=== PATIENT | male | born 1935 | race Caucasian/White ===

== ENCOUNTER → 2016-12-23 | Outpatient (CLI) | payer OTHER, BC ==
[2016-12-23 08:11] LABS: BASOPHILS # (AUTO) 0.1 X10^3/uL (0.0-0.1); BASOPHILS % (AUTO) 1.2 % (0.2-1.0); EOSINOPHILS # (AUTO) 0.2 x10^3/uL (0.0-0.2); EOSINOPHILS % (AUTO) 2.9 % (0.9-2.9); HEMATOCRIT 34.1 % (42.0-54.0); HEMOGLOBIN 11.1 g/dL (13.5-18.0); LYMPHOCYTES # (AUTO) 0.4 X10^3/uL (1.3-2.9); LYMPHOCYTES % (AUTO) 6.3 % (21.0-51.0); MEAN CORPUSCULAR HEMOGLOBIN 29.7 pg (27.0-34.0); MEAN CORPUSCULAR HGB CONC 32.6 g/dL (33.0-35.0); MEAN PLATELET VOLUME 8.1 fL (7.4-11.0); MONOCYTES # (AUTO) 0.6 x10^3/uL (0.3-0.8); MONOCYTES % (AUTO) 8.7 % (0.0-13.0); NEUTROPHILS # (AUTO) 5.4 x10^3/uL (2.2-4.8); NEUTROPHILS % (AUTO) 80.9 % (42.0-75.0); PLATELET COUNT 167 X10^3/uL (150.0-450.0); RED BLOOD COUNT 3.75 X10^6/uL (4.7-6.0); RED CELL DISTRIBUTION WIDTH 14.9 % (11.6-16.5); WHITE BLOOD COUNT 6.7 X10^3/uL (3.6-10.0)
[2016-12-23 08:29] LABS: ALBUMIN 3.6 g/dL (3.4-5.0); BLOOD UREA NITROGEN 23 mg/dL (7-18); CALCIUM 8.9 mg/dL (8.5-10.1); CARBON DIOXIDE 25.4 mmol/L (21-32); CHLORIDE 109 mmol/L (98-107); CHOL/HDL RATIO 2.5 (0.0-5.0); CHOLESTEROL 103 mg/dL (0-200); CREATININE 1.59 mg/dL (0.70-1.30); GLUCOSE 98 mg/dL (65-99); HDL CHOLESTEROL 41 mg/dL (40-60); PHOSPHORUS 3.1 mg/dL (2.6-4.7); SODIUM 143 mmol/L (136-145); TRIGLYCERIDES 31 mg/dL (0-150); URIC ACID 6.2 mg/dL (3.5-7.2); eGFR BLACK RACES 54 (>60); eGFR NON BLACK RACES 45 (>60)
== END ==
LOC: LAB 07:43
PROVIDERS: ATTEND Internal Medicine
DX: I12.9 Hypertensive chronic kidney disease with stage 1 through stage 4 chronic kidney disease, or unspecified chronic kidney disease (principal); N18.3 Chronic kidney disease, stage 3 (moderate)
CPT/HCPCS: 36415; 80061; 80069; 84550; 85025

== ENCOUNTER 2017-03-17 10:00 | Inpatient (IN) | payer OTHER, BC ==
[2017-03-17 10:05] VITALS: BMI 24.3
--- NOTE | 2017-03-17 10:47 | DR.GENAD ---
HPI - PCP Primary Care Physician: brett elderlas - Complaint/Symptoms Chief Complaint Doctors Comments: Patient states he had labs requested by Dr. Mantilla a urologist in [place] and they called him to tell him to come to the emergency room because his potassium was elevated. He denies chest pain or SOB. States he is to go to [place] next week for and ICD implant because his heart is weak and he has irregular heart beat. States he is taking HCTZ and has been eating bannas but is not on any supplimentary potassium. Chief Complaint:: patient had out patient lab work and was told to come to the er because his potassium was high. going to [facility] next week for a defeberlator - Nurses notes reviewed Nurses Notes Review: Yes - Source History Provided: Patient - Mode of Arrival Mode of Arrival: Ambulatory - Timing Onset of Chief Complaint: 03/17/17 Came on: Gradually - Duration Duration: Constant How lon Duration: Days - Location Location: hyperkalemia - Severity Severity: Moderate - Modifying Factors Worsens:: nothing Improves:: nothing PMH - PMH Past Medical History: Yes Past Medical History: Dyslipidemia, Hypertension Past Surgical History: Yes Surgical History: Angioplasty/Stents, Ortho Surgery Past Surgical History Comment: hernia - Family History History of Family Medical Conditions: No - Social History Does patient currently use any type of tobacco product: No Have you used tobacco products in the last 12 months: No Does any household member use tobacco: Yes Alcohol Use: None Do you use any recreational Drugs:: No Lives With: Family Lives Where: Home - infectious screening In the last 2 months have you had wt loss of >10#?: NO Have you had fever, night sweats or hemotysis?: No Have you traveled outside the country in the last 6 months?: No Isolation: Standard ROS - Review of Systems Constitutional: No Symptoms Reported. negative: See HPI, Chills, Diaphoresis, Fever, Malaise, Weakness, Irritable, Fatigue, Loss of Appetite, Other Eyes: No Symptoms Reported. negative: See HPI, Eye Pain, Blurred Vision, Tearing, Discharge, Photophobia, Diplopia, Other ENTM: No Symptoms Reported Respiratoy: No Symptoms Reported Cardiovascular: No Symptoms Reported, Edema, Palpitations. negative: See HPI, Chest Pain, Syncope, Cyanosis, Skin Mottling, Other Gastrointestinal/Abdominal: No Symptoms Reported. negative: See HPI, Abdominal Pain, Constipation, Diarrhea, Nausea, Vomiting, Food Intolerance, Other Genitourinary: No Symptoms Reported Neurological: No Symptoms Reported Musculoskeletal: No Symptoms Reported Integumentary: No Symptoms Reported Hematologic/Lymphatic: No Symptoms Reported Endocrine: No Symptoms Reported Psychiatric: No Symptoms Reported PE - Vital Signs Vitals: Temperature 98.3 F Pulse Rate [Right Brachial] 107 Pulse Rate 110 Respiratory Rate 16 Blood Pressure [Right Arm] 136/78 Blood Pressure 120/75 O2 Sat by Pulse Oximetry 99 - General Limitations: No Limitations General Appearance: Alert, In No Apparent Distress - Head Head Exam: Normal Inspection, Atraumatic, Normocephalic - Eyes Eye exam: Normal Appearance, PERRL, EOMI. negative: Scleral Icterus, Conjunctival Injection, Nystagmus, Miosis, Mydrasis, Periorbital Swelling, Periorbital Tenderness, Other - ENT ENT Exam: Normal Exam, Normal Oropharynx, Normal External Ear Exam, Mucous Membranes Moist, TM's Normal Bilaterally External Ear Exam: Normal External Inspection TM/Canal Exam: Bilateral Normal Nose Exam: Normal Nose Exam Mouth Exam: Normal Inspection Throat Exam: Normal Inspection - Neck Neck Exam: Normal Inspection, Full ROM, Trachea Midline - Chest Chest Inspection: Normal Inspection, Symmetric Chest Wall Rise - Respiratory Respiratory Exam: Normal Lung Sounds Bilat Respiratory Exam: Bilateral Clear to Auscultation - Cardiovascular Cardiovascular Exam: Regular Rate, Normal Rhythm, Tachycardia, Normal Heart Sounds - Abdominal Exam Abdominal Exam: Normal Inspection, Normal Bowel Sounds, Soft. negative: Distention, Tenderness, Guarding, Rebound, Rigidity, Dimnished Bowel Sounds, Hyperactive Bowel Sounds, Hypoactive Bowel Sounds, Organomegaly, Trauma, Incision, Ascites, Mass, Bruit, Pulsatile Mass, Hernia, Other Abdominal Tenderness: negative: RUQ, RLQ, LUQ, LLQ, Epigastrium, Suprapubic, Diffuse, Mild, Moderate, Severe, Other - Extremities Extremities Exam: Normal Inspection, Full ROM, Normal Capillary Refill. negative: Tenderness, Edema, Joint Swelling, Calf Tenderness, Other - Back Back Exam: Normal Inspection, Full ROM. negative: Tenderness, (R) CVA Tenderness, (L) CVA Tenderness, Muscle Spasm, Paraspinal Tenderness, Vertebral Tenderness, Rashes, (R) Sciatic Notch Tenderness, (L) Sciatic Notch Tendern, (R ) Straight Leg Raise, (L) Straight Leg Raise, Other - Neurologic Neurological Exam: Alert, Oriented X3, CN II-XII Intact, Normal Gait, Reflexes Normal - Psychiatric Psychiatric Exam: Normal Affect, Normal Mood. negative: Depressed, Agitated, Anxious, Flat Affect, Manic, Homicidal Ideation, Suicidal Ideation, Other - Skin Skin Exam: Warm, Dry, Intact, Normal Color. negative: Rash, Cyanosis, Diaphoresis, Erythema, Pallor, Mottled, Other Course - Reevaluation 1st: Improved - Consultation Called: 13:41 Call Returned: 13:42 (DR. Tam to admit) - Education/Counseling Education/Counseling: Patient, Family Educated On: Treatment, Diagnosis, Prognosis, Needs for Follow Up ROR - Labs Reviewed Laboratory Results Reviewed?: Yes (All labs and x-ray results reviewed and discussed with patient) Result Diagrams: 03/17/17 10:51 03/17/17 10:51 Laboratory: WBC 5.9 X10^3/uL (3.6-10.0) 03/17/17 10:51 RBC 3.37 X10^6/uL (4.7-6.0) L 03/17/17 10:51 Hgb 10.0 g/dL (13.5-18.0) L 03/17/17 10:51 Hct 30.2 % (42.0-54.0) L 03/17/17 10:51 MCV 89.6 fL (80.0-100.0) 03/17/17 10:51 MCH 29.6 pg (27.0-34.0) 03/17/17 10:51 MCHC 33.1 g/dL (33.0-35.0) 03/17/17 10:51 RDW 15.5 % (11.6-16.5) 03/17/17 10:51 Plt Count 212 X10^3/uL (150.0-450.0) 03/17/17 10:51 MPV 8.3 fL (7.4-11.0) 03/17/17 10:51 Neut % 77.1 % (42.0-75.0) H 03/17/17 10:51 Lymph % 11.9 % (21.0-51.0) L 03/17/17 10:51 [place] % 7.5 % (0.0-13.0) 03/17/17 10:51 Eos % 3.0 % (0.9-2.9) H 03/17/17 10:51 Baso % 0.5 % (0.2-1.0) 03/17/17 10:51 Neut # 4.5 x10^3/uL (2.2-4.8) 03/17/17 10:51 Lymph # 0.7 X10^3/uL (1.3-2.9) L 03/17/17 10:51 [place] # 0.4 x10^3/uL (0.3-0.8) 03/17/17 10:51 Eos # 0.2 x10^3/uL (0.0-0.2) 03/17/17 10:51 Baso # 0.0 X10^3/uL (0.0-0.1) 03/17/17 10:51 Absolute Nucleated RBC 0.0 /100WBC 03/17/17 10:51 INR Target Range - 03/17/17 10:51 INR 1.34 (0.8-1.3) H 03/17/17 10:51 PTT 46.4 SECONDS (22.9-36.5) H 03/17/17 10:51 PTT Comment - 03/17/17 10:51 Sodium 137 mmol/L (136-145) 03/17/17 10:51 Corrected Sodium TNP 03/17/17 10:51 Potassium 6.8 mmol/L (3.5-5.1) H* 03/17/17 10:51 Chloride 108 mmol/L (98-107) H 03/17/17 10:51 Carbon Dioxide 22.9 mmol/L (21-32) 03/17/17 10:51 BUN 35 mg/dL (7-18) H 03/17/17 10:51 Creatinine 2.58 mg/dL (0.70-1.30) H 03/17/17 10:51 Est GFR (MDRD) Af Amer 31 (>60) L 03/17/17 10:51 Est GFR (MDRD) Non-Af 26 (>60) L 03/17/17 10:51 Glucose 101 mg/dL (65-99) H 03/17/17 10:51 Calcium 9.3 mg/dL (8.5-10.1) 03/17/17 10:51 Corrected Calcium 9.9 mg/dL (8.5-10.1) 03/17/17 10:51 Magnesium 2.3 mg/dL (1.7-2.9) 03/17/17 10:51 Total Bilirubin 0.40 mg/dL (0.2-1.0) 03/17/17 10:51 AST 20 Units/L (15-37) 03/17/17 10:51 ALT 20 Units/L (12-78) 03/17/17 10:51 Alkaline Phosphatase 66 Units/L (46-116) 03/17/17 10:51 Creatine Kinase 49 Units/L (39-308) 03/17/17 10:51 CK-MB (CK-2) 18.0 ng/mL (0-4.0) H* 03/17/17 10:51 CK/CKMB % Calc 36.7 % (<4) 03/17/17 10:51 Troponin I 0.03 ng/mL (0-1.5) 03/17/17 10:51 Total Protein 7.2 g/dL (6.4-8.2) 03/17/17 10:51 Albumin 3.3 g/dL (3.4-5.0) L 03/17/17 10:51 Globulin 3.9 g/dL (2.5-4.5) 03/17/17 10:51 Albumin/Globulin Ratio 0.8 Ratio (1.1-2.1) L 03/17/17 10:51 - XRAY XRAY Interpreted by: Radiologist (CXR: Cardiomegaly without acut cardiopulmonary disease or CHF) - Diagnosis Discharge Problem: Hyperkalemia, Atrial flutter, paroxysmal, Cardiomegaly, Tachycardia Chronic kidney disease Qualifiers: Chronic kidney disease stage: stage 3 (moderate) Qualified Code(s): N18.3 - Chronic kidney disease, stage 3 (moderate) - Discharge Plan Disposition: ADMITTED INPATIENT Condition: Stable - Follow ups/Referrals Follow ups/Referrals: RIKKI MANTILLA [Primary Care Provider] - 3 days - Instructions
[2017-03-17] MEDS ORDERED: KAYEXALATE PO ONE (10:48)
[2017-03-17] MEDS ORDERED: NS 1000 ML 1,000 ML IV ONE (10:51)
[2017-03-17] MEDS ORDERED: NS 1000 ML 1,000 ML IV SCH (11:00)
[2017-03-17 11:01] LABS: BASOPHILS % (AUTO) 0.5 % (0.2-1.0); EOSINOPHILS # (AUTO) 0.2 x10^3/uL (0.0-0.2); HEMATOCRIT 30.2 % (42.0-54.0); LYMPHOCYTES # (AUTO) 0.7 X10^3/uL (1.3-2.9); LYMPHOCYTES % (AUTO) 11.9 % (21.0-51.0); MEAN CORPUSCULAR HEMOGLOBIN 29.6 pg (27.0-34.0); MEAN CORPUSCULAR HGB CONC 33.1 g/dL (33.0-35.0); MEAN CORPUSCULAR VOLUME 89.6 fL (80.0-100.0); MEAN PLATELET VOLUME 8.3 fL (7.4-11.0); MONOCYTES # (AUTO) 0.4 x10^3/uL (0.3-0.8); MONOCYTES % (AUTO) 7.5 % (0.0-13.0); NEUTROPHILS # (AUTO) 4.5 x10^3/uL (2.2-4.8); NEUTROPHILS % (AUTO) 77.1 % (42.0-75.0); PLATELET COUNT 212 X10^3/uL (150.0-450.0); RED BLOOD COUNT 3.37 X10^6/uL (4.7-6.0); RED CELL DISTRIBUTION WIDTH 15.5 % (11.6-16.5); WHITE BLOOD COUNT 5.9 X10^3/uL (3.6-10.0)
[2017-03-17 11:41] LABS: ALANINE AMINOTRANSFERASE 20 Units/L (12-78); ALBUMIN 3.3 g/dL (3.4-5.0); ALKALINE PHOSPHATASE 66 Units/L (46-116); ASPARTATE AMINO TRANSFERASE 20 Units/L (15-37); BLOOD UREA NITROGEN 35 mg/dL (7-18); CALCIUM 9.3 mg/dL (8.5-10.1); CARBON DIOXIDE 22.9 mmol/L (21-32); CHLORIDE 108 mmol/L (98-107); CKMB % 36.7 % (<4); COR CA(FOR HYPOALB) 9.9 mg/dL (8.5-10.1); CREATINE KINASE 49 Units/L (39-308); CREATININE 2.58 mg/dL (0.70-1.30); GLUCOSE 101 mg/dL (65-99); MAGNESIUM 2.3 mg/dL (1.7-2.9); SODIUM 137 mmol/L (136-145); TOTAL PROTEIN 7.2 g/dL (6.4-8.2); TROPONIN I 0.03 ng/mL (0-1.5); eGFR BLACK RACES 31 (>60); eGFR NON BLACK RACES 26 (>60)
--- NOTE | 2017-03-17 12:35 | RAD ---
HISTORY: Chest pain and hypokalemia. Study: Single-view chest. Comparison: None. Findings: The trachea is midline. The cardiac silhouette is enlarged with a tortuous thoracic aorta status po st median sternotomy and CABG without radiographic evidence for CHF. The lungs are clear without fo ryan infiltrate or effusion. The bony thorax is unremarkable. IMPRESSION: Cardiomegaly without acute cardiopulmonary disease or CHF. Reported By:
[2017-03-17] MEDS ORDERED: CARDIZEM INJ 50 MG VIAL IVP ONE (12:50)
[2017-03-17] MEDS ORDERED: CARDIZEM INJ 125 MG VIAL 125 MG in NS 100 ML IV 100 ML IV PRN (12:50)
[2017-03-17] MEDS ORDERED: D50W ABBOJECT SYR IV ONE (12:53)
[2017-03-17] MEDS ORDERED: HumuLIN R IV STA (12:55)
[2017-03-17] MEDS ORDERED: CARDIZEM INJ 50 MG VIAL ONE (12:57)
[2017-03-17] MEDS ORDERED: D50W ABBOJECT SYR ONE (12:59)
[2017-03-17] MEDS ORDERED: HumuLIN R ONE (13:00)
[2017-03-17 15:04] LABS: CKMB % 37.3 % (<4); TROPONIN I 0.04 ng/mL (0-1.5)
[2017-03-17 15:22] LABS: CREATINE KINASE MB 17.9 ng/mL (0-4.0)
[2017-03-17] MEDS: PROTONIX INJ 40 MG VIAL IVP SCH (18:16)
[2017-03-17] MEDS: NS 1000 ML 1,000 ML IV SCH (18:16)
[2017-03-17] MEDS: ELIQUIS PO SCH (18:17)
[2017-03-17 20:36] LABS: CKMB % 35.2 % (<4); TROPONIN I 0.04 ng/mL (0-1.5)
[2017-03-17 20:46] LABS: CREATINE KINASE MB 16.2 ng/mL (0-4.0)
[2017-03-17] MEDS: ZOCOR TAB 40 MG PO SCH (20:55)
[2017-03-17] MEDS: COREG TAB 3.125 MG PO SCH ×2 (20:55→20:59)
[2017-03-17] MEDS: SNACK - Diabetic Appropriate PO SCH (20:56)
[2017-03-18 02:16] LABS: BASOPHILS % (AUTO) 0.9 % (0.2-1.0); EOSINOPHILS # (AUTO) 0.1 x10^3/uL (0.0-0.2); EOSINOPHILS % (AUTO) 2.4 % (0.9-2.9); HEMATOCRIT 27.3 % (42.0-54.0); HEMOGLOBIN 9.1 g/dL (13.5-18.0); LYMPHOCYTES # (AUTO) 0.7 X10^3/uL (1.3-2.9); LYMPHOCYTES % (AUTO) 14.5 % (21.0-51.0); MEAN CORPUSCULAR HEMOGLOBIN 29.9 pg (27.0-34.0); MEAN CORPUSCULAR HGB CONC 33.3 g/dL (33.0-35.0); MEAN CORPUSCULAR VOLUME 89.8 fL (80.0-100.0); MEAN PLATELET VOLUME 8.3 fL (7.4-11.0); MONOCYTES # (AUTO) 0.5 x10^3/uL (0.3-0.8); MONOCYTES % (AUTO) 9.5 % (0.0-13.0); NEUTROPHILS # (AUTO) 3.6 x10^3/uL (2.2-4.8); NEUTROPHILS % (AUTO) 72.7 % (42.0-75.0); PLATELET COUNT 149 X10^3/uL (150.0-450.0); RED BLOOD COUNT 3.04 X10^6/uL (4.7-6.0); RED CELL DISTRIBUTION WIDTH 15.9 % (11.6-16.5); WHITE BLOOD COUNT 4.9 X10^3/uL (3.6-10.0)
[2017-03-18 02:26] LABS: ALANINE AMINOTRANSFERASE 17 Units/L (12-78); ALBUMIN 2.7 g/dL (3.4-5.0); ALKALINE PHOSPHATASE 56 Units/L (46-116); ASPARTATE AMINO TRANSFERASE 16 Units/L (15-37); BLOOD UREA NITROGEN 32 mg/dL (7-18); CALCIUM 8.2 mg/dL (8.5-10.1); CARBON DIOXIDE 22.2 mmol/L (21-32); CHLORIDE 111 mmol/L (98-107); CHOL/HDL RATIO 2.4 (0.0-5.0); CHOLESTEROL 79 mg/dL (0-200); COR CA(FOR HYPOALB) 9.2 mg/dL (8.5-10.1); CREATININE 2.54 mg/dL (0.70-1.30); GLUCOSE 107 mg/dL (65-99); HDL CHOLESTEROL 33 mg/dL (40-60); SODIUM 139 mmol/L (136-145); TOTAL PROTEIN 6.1 g/dL (6.4-8.2); TRIGLYCERIDES 18 mg/dL (0-150); eGFR BLACK RACES 32 (>60); eGFR NON BLACK RACES 26 (>60)
[2017-03-18 02:53] LABS: CKMB % 31.4 % (<4); TROPONIN I 0.21 ng/mL (0-1.5)
[2017-03-18 02:59] LABS: CREATINE KINASE MB 13.2 ng/mL (0-4.0)
[2017-03-18] MEDS: NS 1000 ML 1,000 ML IV SCH ×2 (03:00→17:16)
[2017-03-18 08:46] LABS: CKMB % 29.6 % (<4); TROPONIN I 0.36 ng/mL (0-1.5)
[2017-03-18] MEDS: FLOMAX PO SCH (08:55)
[2017-03-18] MEDS: ELIQUIS PO SCH ×2 (08:55→20:54)
[2017-03-18 08:56] LABS: CREATINE KINASE MB 14.5 ng/mL (0-4.0)
[2017-03-18] MEDS: LASIX PO SCH (08:56)
[2017-03-18] MEDS: COREG TAB 3.125 MG PO SCH (08:56)
[2017-03-18] MEDS: PROTONIX INJ 40 MG VIAL IVP SCH (08:56)
[2017-03-18] MEDS ORDERED: COREG TAB 3.125 MG PO SCH (11:58)
[2017-03-18] MEDS ORDERED: COREG TAB 3.125 MG PO ONE (13:00)
[2017-03-18] MEDS: SNACK - Diabetic Appropriate PO SCH (20:40)
[2017-03-18] MEDS: ZOCOR TAB 40 MG PO SCH (20:54)
[2017-03-18] MEDS: COREG TAB 12.5 MG PO SCH (20:54)
[2017-03-19] MEDS: NS 1000 ML 1,000 ML IV SCH (06:22)
[2017-03-19] MEDS: PROTONIX INJ 40 MG VIAL IVP SCH (08:15)
[2017-03-19] MEDS: ELIQUIS PO SCH (08:16)
[2017-03-19] MEDS: FLOMAX PO SCH (08:16)
[2017-03-19] MEDS: COREG TAB 12.5 MG PO SCH (08:16)
[2017-03-19] MEDS: LASIX PO SCH (08:16)
[2017-03-19 13:02] VITALS: BP 112/75
== END 2017-03-19 13:45 | disposition home or self-care (01) | DRG 310 ==
LOC: ER 10:07 → ICU 13:43
PROVIDERS: ADMIT Obstetrics & Gynecology Obstetrics; ATTEND Obstetrics & Gynecology Obstetrics
DX: I48.91 Unspecified atrial fibrillation (principal); E87.5 Hyperkalemia; I51.7 Cardiomegaly; R00.0 Tachycardia, unspecified; N18.3 Chronic kidney disease, stage 3 (moderate); N28.89 Other specified disorders of kidney and ureter; I12.9 Hypertensive chronic kidney disease with stage 1 through stage 4 chronic kidney disease, or unspecified chronic kidney disease
CPT/HCPCS: 36415; 71010; 80053; 80061; 80069; 82550; 82553; 83735; 84484; 84550; 85025; 85610; 85730; 93005; 93010; 96365; 96367; 96374; 96375; 99284; 99285; A4216; A4222; C9113; J1815; J3490

== ENCOUNTER → 2017-03-17 | Outpatient (CLI) | payer OTHER, BC ==
[2017-03-17 08:45] LABS: ALBUMIN 3.4 g/dL (3.4-5.0); BLOOD UREA NITROGEN 35 mg/dL (7-18); CALCIUM 9.2 mg/dL (8.5-10.1); CHLORIDE 108 mmol/L (98-107); CREATININE 2.69 mg/dL (0.70-1.30); GLUCOSE 102 mg/dL (65-99); PHOSPHORUS 3.3 mg/dL (2.6-4.7); SODIUM 139 mmol/L (136-145); eGFR BLACK RACES 30 (>60); eGFR NON BLACK RACES 24 (>60)
[2017-03-17 08:46] LABS: BASOPHILS % (AUTO) 0.5 % (0.2-1.0); EOSINOPHILS # (AUTO) 0.2 x10^3/uL (0.0-0.2); EOSINOPHILS % (AUTO) 3.1 % (0.9-2.9); HEMATOCRIT 32.3 % (42.0-54.0); HEMOGLOBIN 10.6 g/dL (13.5-18.0); LYMPHOCYTES # (AUTO) 0.7 X10^3/uL (1.3-2.9); MEAN CORPUSCULAR HEMOGLOBIN 29.6 pg (27.0-34.0); MEAN CORPUSCULAR HGB CONC 32.9 g/dL (33.0-35.0); MEAN CORPUSCULAR VOLUME 89.9 fL (80.0-100.0); MEAN PLATELET VOLUME 8.4 fL (7.4-11.0); MONOCYTES # (AUTO) 0.5 x10^3/uL (0.3-0.8); MONOCYTES % (AUTO) 7.8 % (0.0-13.0); NEUTROPHILS # (AUTO) 4.8 x10^3/uL (2.2-4.8); NEUTROPHILS % (AUTO) 77.6 % (42.0-75.0); PLATELET COUNT 221 X10^3/uL (150.0-450.0); RED BLOOD COUNT 3.59 X10^6/uL (4.7-6.0); RED CELL DISTRIBUTION WIDTH 15.9 % (11.6-16.5); WHITE BLOOD COUNT 6.2 X10^3/uL (3.6-10.0)
== END ==
LOC: LAB 08:12
PROVIDERS: ATTEND Internal Medicine
DX: N28.89 Other specified disorders of kidney and ureter (principal); I12.9 Hypertensive chronic kidney disease with stage 1 through stage 4 chronic kidney disease, or unspecified chronic kidney disease; N18.3 Chronic kidney disease, stage 3 (moderate)
CPT/HCPCS: 36415; 80069; 84550; 85025

== ENCOUNTER 2017-05-03 21:00 | Emergency (ER) | payer OTHER, BC ==
[2017-05-03 21:08] VITALS: BMI 23.0
--- NOTE | 2017-05-03 23:10 | DR.GENAD ---
HPI - PCP Primary Care Physician: ANNALEE - Complaint/Symptoms Chief Complaint Doctors Comments: "I can't pee after my catheter came out." Chief Complaint:: PRESSLEY CATH CAME OUT X 1 HR AGO, Self Treatment fo Chief Complaint: NONE - Nurses notes reviewed Nurses Notes Review: Yes - Source History Provided: Patient, Family Member - Mode of Arrival Mode of Arrival: Wheelchair - Timing Onset of Chief Complaint: 05/03/17 Came on: Suddenly - Duration Duration: Since Onset How lon Duration: Hours - Severity Severity: Moderate PMH - PMH Past Medical History: Yes Past Medical History: Dyslipidemia, Hypertension Past Surgical History: Yes Surgical History: Angioplasty/Stents, Ortho Surgery - Family History History of Family Medical Conditions: No - Social History Does patient currently use any type of tobacco product: No Have you used tobacco products in the last 12 months: No Type of Tobacco Use: None Does any household member use tobacco: Yes Alcohol Use: None Do you use any recreational Drugs:: No Lives With: Family Lives Where: Home - infectious screening In the last 2 months have you had wt loss of >10#?: NO Have you had fever, night sweats or hemotysis?: No Have you traveled outside the country in the last 6 months?: No Isolation: Standard ROS - Review of Systems Constitutional: No Symptoms Reported Eyes: No Symptoms Reported Respiratoy: No Symptoms Reported Cardiovascular: No Symptoms Reported Gastrointestinal/Abdominal: No Symptoms Reported Genitourinary: Pain, Other (acute urinary retention) Neurological: No Symptoms Reported Musculoskeletal: No Symptoms Reported Integumentary: No Symptoms Reported Hematologic/Lymphatic: No Symptoms Reported Endocrine: No Symptoms Reported Psychiatric: No Symptoms Reported All Other Systems: Reviewed and Negative PE - Vital Signs Vitals: Temperature 98.2 F Pulse Rate 75 Respiratory Rate 16 Blood Pressure [Left Arm] 112/75 Blood Pressure [Right Arm] 115/72 Blood Pressure 115/49 O2 Sat by Pulse Oximetry 97 - General Limitations: No Limitations General Appearance: Alert, In No Apparent Distress - Head Head Exam: Normal Inspection - Neck Neck Exam: Normal Inspection, Trachea Midline - Chest Chest Inspection: Normal Inspection, Symmetric Chest Wall Rise - Respiratory Respiratory Exam: Normal Lung Sounds Bilat Respiratory Exam: Bilateral Clear to Auscultation - Cardiovascular Cardiovascular Exam: Regular Rate, Irregular Rhythm, Normal Heart Sounds - Abdominal Exam Abdominal Exam: Normal Inspection, Normal Bowel Sounds, Soft - Extremities Extremities Exam: Edema - Neurologic Neurological Exam: Alert, Oriented X3, CN II-XII Intact - Psychiatric Psychiatric Exam: Normal Affect, Normal Mood - Skin Skin Exam: Warm, Dry - Diagnosis Discharge Problem: Acute urinary retention - Discharge Plan Disposition: 01 HOME, SELF-CARE Condition: Stable - Follow ups/Referrals Follow ups/Referrals: RIKKI MANTILLA [Primary Care Provider] - 3 days - Instructions
[2017-05-03 23:16] LABS: BILIRUBIN,URINE NEGATIVE (NEGATIVE); BLOOD/HEMOGLOBIN,URINE 5+ (NEGATIVE); GLUCOSE, URINE NEGATIVE (NEGATIVE); KETONES,URINE NEGATIVE (NEGATIVE); LEUKOCYTE ESTERASE ,URINE 1+ (NEGATIVE); NITRITES,URINE NEGATIVE (NEGATIVE); PROTEIN,URINE 2+ (NEGATIVE); UROBILINOGEN,URINE NORMAL (NORMAL)
[2017-05-03 23:26] LABS: APPEARANCE,URINE CLEAR (CLEAR); BACTERIA,URINE NEGATIVE /HPF (NEGATIVE); COLOR,URINE YELLOW (YELLOW); RBC,URINE 15-20 /HPF (NEGATIVE); SQUAMOUS EPITHELIAL CELL,UR RARE /HPF (NEGATIVE)
[2017-05-04 00:28] VITALS: BP 118/82
== END 2017-05-04 00:26 | disposition home or self-care (01) ==
LOC: ER 21:12
PROC: 0T9B70Z Drainage of Bladder with Drainage Device, Via Natural or Artificial Opening (ICD-10-PCS; principal; 2017-05-03)
DX: R33.8 Other retention of urine (principal)
CPT/HCPCS: 51702; 81001; 99282

== ENCOUNTER 2017-06-03 15:41 | Emergency (ER) | payer OTHER, BC ==
[2017-06-03 15:46] VITALS: BMI 23.3
[2017-06-03 15:47] VITALS: BP 103/46
--- NOTE | 2017-06-03 16:19 | DR.GENAD ---
HPI - PCP Primary Care Physician: ANNALEE - Complaint/Symptoms Chief Complaint Doctors Comments: Patient has been hospitalized for two months for renal failure. His catheter was discontinued on three days ago and he has not urinated since. His manager wellness is Dr Willams. Patient is also contipated. Chief Complaint:: PATIENT [place] [facility] [place] AND HAS BEEN ON DIALYSIS AND WAS D/C LAST WEEK FROM THE HOSPITAL AND HASNT URINATED SINCE. - Source History Provided: Patient - Mode of Arrival Mode of Arrival: Ambulatory - Timing Onset of Chief Complaint: 05/31/17 PMH - PMH Past Medical History: Yes Past Medical History: Dyslipidemia, Hypertension Past Surgical History: Yes Surgical History: Angioplasty/Stents, Ortho Surgery - Family History History of Family Medical Conditions: No - Social History Does patient currently use any type of tobacco product: No Have you used tobacco products in the last 12 months: No Type of Tobacco Use: None Does any household member use tobacco: No Alcohol Use: None Do you use any recreational Drugs:: No Lives With: Family Lives Where: Home - infectious screening In the last 2 months have you had wt loss of >10#?: NO Have you had fever, night sweats or hemotysis?: No Have you traveled outside the country in the last 6 months?: No Isolation: Standard ROS - Review of Systems Constitutional: No Symptoms Reported Eyes: No Symptoms Reported ENTM: No Symptoms Reported Respiratoy: No Symptoms Reported Cardiovascular: No Symptoms Reported Gastrointestinal/Abdominal: No Symptoms Reported Genitourinary: No Symptoms Reported Neurological: No Symptoms Reported Musculoskeletal: No Symptoms Reported Integumentary: No Symptoms Reported Hematologic/Lymphatic: No Symptoms Reported Endocrine: No Symptoms Reported Psychiatric: No Symptoms Reported All Other Systems: Reviewed and Negative PE - Vital Signs Vitals: Temperature 98.6 F Pulse Rate 70 Respiratory Rate 16 Blood Pressure [Left Arm] 118/82 Blood Pressure [Right Arm] 115/72 Blood Pressure 103/46 O2 Sat by Pulse Oximetry 100 - General Limitations: No Limitations General Appearance: Alert, In No Apparent Distress - Head Head Exam: Normal Inspection, Atraumatic - Eyes Eye exam: Normal Appearance, PERRL, EOMI - ENT ENT Exam: Normal Exam External Ear Exam: Normal External Inspection TM/Canal Exam: Bilateral Normal Nose Exam: Normal Nose Exam, Sinus Tenderness Mouth Exam: Normal Inspection Throat Exam: Normal Inspection - Neck Neck Exam: Normal Inspection - Chest Chest Inspection: Normal Inspection - Respiratory Respiratory Exam: Normal Lung Sounds Bilat Respiratory Exam: Bilateral Clear to Auscultation - Cardiovascular Cardiovascular Exam: Regular Rate, Normal Rhythm - Abdominal Exam Abdominal Exam: Normal Inspection, Normal Bowel Sounds Abdominal Tenderness: negative: RUQ, RLQ, LUQ, LLQ, Epigastrium, Suprapubic, Diffuse, Mild, Moderate, Severe, Other - Extremities Extremities Exam: Normal Inspection, Full ROM - Back Back Exam: Normal Inspection - Neurologic Neurological Exam: Alert, Oriented X3, CN II-XII Intact - Psychiatric Psychiatric Exam: Normal Affect, Depressed - Skin Skin Exam: Warm, Dry, Intact - Diagnosis Discharge Problem: Renal failure syndrome Qualifiers: Renal failure chronicity: acute Acute renal failure type: unspecified Qualified Code(s): N17.9 - Acute kidney failure, unspecified Constipation Qualifiers: Constipation type: slow transit constipation Qualified Code(s): K59.01 - Slow transit constipation - Discharge Plan Condition: Stable - Follow ups/Referrals Follow ups/Referrals: RIKKI MANTILLA [Primary Care Provider] - 3 days - Instructions
[2017-06-03] MEDS ORDERED: CITROMA ONE (16:37)
[2017-06-03] MEDS ORDERED: CITROMA PO ONE (16:38)
== END 2017-06-03 16:39 | disposition home or self-care (01) ==
LOC: ER 15:56
DX: N17.9 Acute kidney failure, unspecified (principal); K59.01 Slow transit constipation
CPT/HCPCS: 99282

== ENCOUNTER 2017-06-18 15:11 | Emergency (ER) | payer OTHER, BC ==
[2017-06-18 15:20] VITALS: BP 101/62; BMI 24.3
--- NOTE | 2017-06-18 16:06 | DR.GENAD ---
HPI - PCP Primary Care Physician: ANNALEE - Complaint/Symptoms Chief Complaint Doctors Comments: Fell on yesterday his back of head, had been hallucinating and not acting right since. Chief Complaint:: " I FELL AND HIT MY HEAD YESTERDAY" Self Treatment fo Chief Complaint: NONE - Source History Provided: Patient - Mode of Arrival Mode of Arrival: Wheelchair - Timing Onset of Chief Complaint: 06/17/17 PMH - PMH Past Medical History: Yes Past Medical History: Coronary Artery Disease, [place], Renal Disease Past Surgical History: Yes Surgical History: Angioplasty/Stents, Ortho Surgery - Family History History of Family Medical Conditions: Yes Family Medical History: [place], Coronary Artery Disease - Social History Does patient currently use any type of tobacco product: No Have you used tobacco products in the last 12 months: No Type of Tobacco Use: None Does any household member use tobacco: No Alcohol Use: None Do you use any recreational Drugs:: No Lives With: Family Lives Where: Home - infectious screening In the last 2 months have you had wt loss of >10#?: NO Have you had fever, night sweats or hemotysis?: No Have you traveled outside the country in the last 6 months?: No ROS - Review of Systems Eyes: No Symptoms Reported ENTM: No Symptoms Reported Respiratoy: No Symptoms Reported Cardiovascular: No Symptoms Reported Gastrointestinal/Abdominal: No Symptoms Reported Genitourinary: No Symptoms Reported Neurological: No Symptoms Reported Musculoskeletal: No Symptoms Reported Integumentary: No Symptoms Reported Hematologic/Lymphatic: No Symptoms Reported Endocrine: No Symptoms Reported Psychiatric: No Symptoms Reported All Other Systems: Reviewed and Negative PE - Vital Signs Vitals: Temperature 98.7 F Pulse Rate 69 Respiratory Rate 20 Blood Pressure [Left Arm] 118/82 Blood Pressure [Right Arm] 115/72 Blood Pressure 101/62 O2 Sat by Pulse Oximetry 98 - General Limitations: No Limitations General Appearance: Alert, In No Apparent Distress - Head Head Exam: Other (Right posterior lateral occipital area a small punctum) - Eyes Eye exam: Normal Appearance, PERRL, EOMI - ENT ENT Exam: Normal Exam External Ear Exam: Normal External Inspection TM/Canal Exam: Bilateral Normal Nose Exam: Normal Nose Exam Mouth Exam: Normal Inspection Throat Exam: Normal Inspection - Neck Neck Exam: Normal Inspection - Chest Chest Inspection: Normal Inspection - Respiratory Respiratory Exam: Normal Lung Sounds Bilat Respiratory Exam: Bilateral Clear to Auscultation - Cardiovascular Cardiovascular Exam: Regular Rate, Normal Rhythm - Abdominal Exam Abdominal Exam: Normal Inspection, Normal Bowel Sounds Abdominal Tenderness: negative: RUQ, RLQ, LUQ, LLQ, Epigastrium, Suprapubic, Diffuse, Mild, Moderate, Severe, Other - Extremities Extremities Exam: Normal Inspection, Full ROM - Back Back Exam: Normal Inspection - Neurologic Neurological Exam: Alert, Oriented X3, CN II-XII Intact - Psychiatric Psychiatric Exam: Normal Affect - Skin Skin Exam: Warm, Dry, Intact Course - Reevaluation 1st: Improved ROR - XRAY XRAY Interpreted by: Radiologist (CT Brain:0No acute intracranial pathology) - Diagnosis Discharge Problem: Head contusion Qualifiers: Encounter type: initial encounter Contusion of head detail: scalp Qualified Code(s): S00.03XA - Contusion of scalp, initial encounter - Discharge Plan Condition: Stable - Follow ups/Referrals Follow ups/Referrals: RIKKI MANTILLA [Primary Care Provider] - 3 days - Instructions
--- NOTE | 2017-06-18 16:53 | CT ---
HISTORY: Fell yesterday and hit head. Study: CT brain without contrast Comparison: None. Technique: Multiple axial images of the brain were obtained from the skull base to the vertex without administra tion of IV contrast. Dose reduction techniques including Automated Exposure Control (AEC) and adjust ment of mA and kV were utilized. Findings: Age related cortical atrophy and chronic small vessel ischemic changes. No acute intraparenchymal hem orrhage or mass can be identified. No extra-axial fluid collections are seen. No alteration in the attenuation of the brain parenchyma can be identified to suggest acute or subacute ischemic change. The ventricular system is symmetric and nondilated. The extracranial structures are grossly unremark able. IMPRESSION: No acute intracranial pathology. Reported By:
== END 2017-06-18 17:09 | disposition home or self-care (01) ==
LOC: ER 15:20
DX: S00.03XA Contusion of scalp, initial encounter (principal); W19.XXXA Unspecified fall, initial encounter; Y92.9 Unspecified place or not applicable
CPT/HCPCS: 70450; 99282; 99283

== ENCOUNTER 2017-07-05 08:52 | Day surgery (SDC) | payer OTHER, BC ==
[2017-07-05] MEDS ORDERED: D5 LR 1000 ML 1,000 ML IV ONE (08:54)
[2017-07-05] MEDS ORDERED: NS 500 ML IV 500 ML IV ONE (09:54)
[2017-07-05] MEDS ORDERED: DIPRIVAN VIAL 10 ML ONE (11:46)
[2017-07-05] MEDS ORDERED: ROBINUL ONE (11:46)
[2017-07-05] MEDS ORDERED: XYLOCAINE 2 % (PLAIN) ONE (11:47)
[2017-07-05 12:24] VITALS: BP 103/62
[2017-07-05 12:56] LABS: ALBUMIN 2.5 g/dL (3.4-5.0); BILIRUBIN,DIRECT 0.15 mg/dL (0-0.2); TOTAL PROTEIN 6.9 g/dL (6.4-8.2)
== END 2017-07-05 12:28 | disposition home or self-care (01) ==
LOC: SURG1 08:52
PROVIDERS: ATTEND Internal Medicine Gastroenterology
PROC: 0DB68ZX Excision of Stomach, Via Natural or Artificial Opening Endoscopic, Diagnostic (ICD-10-PCS; principal; 2017-07-05 12:15)
PROC: 0DJ08ZZ Inspection of Upper Intestinal Tract, Via Natural or Artificial Opening Endoscopic (ICD-10-PCS; principal; 2017-07-05 12:15)
DX: R10.13 Epigastric pain (principal); R11.2 Nausea with vomiting, unspecified; K21.9 Gastro-esophageal reflux disease without esophagitis; K25.9 Gastric ulcer, unspecified as acute or chronic, without hemorrhage or perforation; K29.60 Other gastritis without bleeding; K20.8 Other esophagitis
CPT/HCPCS: 36415; 80076; 99100; A4217; J2001; J3490; J7120

== ENCOUNTER 2017-11-05 10:01 | Emergency (ER) | payer OTHER, BC ==
[2017-11-05 10:11] VITALS: BP 140/65; BMI 22.1
--- NOTE | 2017-11-05 10:34 | DR.URIAD ---
HPI - Time Seen Time seen: 10:35 - PCP Primary Care Physician: - HPI Comment HPI Comment: WORSE TODAY. - Complaint Chief Complaint Doctors Comments: COUGH, COLD CONGESTION WITH WHEEZING TIMES ONE DAY. Chief Complaint:: PT C/O CCC, AND COUGHING UP MUCOUS AND THAT HE FEELS LIKE HE HAS THE FLU AND THAT HE HAS BEEN WEEZING. Self Treatment fo Chief Complaint: NO ME - Reviewed Nurses Notes Reviewed: Yes - Source History Provided: Patient - Mode of Arrival Mode of Arrival: Ambulatory - Timing Onset of Chief Complaint: 11/04/17 - Context Recent Treated Infections: None History of Respiratory: None - Quality Quality of Cough: Productive, Yellow Rhinorrhea: Green Shortness of Breath: Mild - Associated Signs and Symptoms Other Signs and Symptoms: Cough PMH - PMH Past Medical History: Yes Past Medical History: Coronary Artery Disease, [place], Renal Disease, SVT Past Medical History Comment: DIALYSIS. DEFIBRILATOR AND PACEMAKER. Past Surgical History: Yes Surgical History: Angioplasty/Stents, Ortho Surgery - Family History History of Family Medical Conditions: Yes Family Medical History: MS, Coronary Artery Disease - Social History Does patient currently use any type of tobacco product: No Have you used tobacco products in the last 12 months: No Type of Tobacco Use: None Does any household member use tobacco: No Alcohol Use: None Do you use any recreational Drugs:: No Lives With: Family Lives Where: Home - infectious screening In the last 2 months have you had wt loss of >10#?: NO Have you had fever, night sweats or hemotysis?: No Have you traveled outside the country in the last 6 months?: No Isolation: Airborn/Negative Pressure ROS - Review of Systems Constitutional: Weakness, Fatigue. negative: Chills, Fever Eyes: No Symptoms Reported ENTM: Nose Discharge, Nose Congestion, Throat Pain. negative: Ear Pain Respiratoy: Productive Cough, Short of Breath, Wheezing. negative: Hemoptysis Cardiovascular: No Symptoms Reported Gastrointestinal/Abdominal: No Symptoms Reported Genitourinary: No Symptoms Reported Neurological: No Symptoms Reported Musculoskeletal: Muscle Pain Integumentary: No Symptoms Reported Hematologic/Lymphatic: No Symptoms Reported Endocrine: No Symptoms Reported All Other Systems: Reviewed and Negative PE - Vital Signs Vitals: Temperature 97.0 F Pulse Rate 70 Respiratory Rate 18 Blood Pressure [Left Arm] 118/82 Blood Pressure [Right Arm] 115/72 Blood Pressure 140/65 O2 Sat by Pulse Oximetry 94 - General Limitations: No Limitations General Appearance: Alert - Head Head Exam: Normal Inspection - Eyes Eye exam: Normal Appearance - ENT ENT Exam: Normal External Ear Exam External Ear Exam: Normal External Inspection TM/Canal Exam: Bilateral Normal Nose Exam: Normal Nose Exam Nasal Speculum Exam: Bilateral Normal Mouth Exam: Normal Inspection Throat Exam: Normal Inspection - Neck Neck Exam: Normal Inspection - Chest Chest Inspection: Symmetric Chest Wall Rise - Respiratory Respiratory Exam: Normal Lung Sounds Bilat Respiratory Exam: Bilateral Clear to Auscultation - Cardiovascular Cardiovascular Exam: Regular Rate, Normal Rhythm, Normal Heart Sounds - Abdominal Exam Abdominal Exam: Normal Bowel Sounds, Soft, Tenderness - Extremeties Extremities Exam: Normal Inspection - Back Back Exam: Normal Inspection - Neurologic Neurological Exam: Alert, Oriented X3 - Psychiatric Psychiatric Exam: Normal Affect, Normal Mood - Skin Skin Exam: Normal Color MDM - Differential Diagnosis Differential Diagnosis: Influenza A, Influenza B, Otitis media, Streptococcal pharyngitis, Viral pharyngitis, Pneumonia, Sinsusitis, URI (BRONCHITIS, SINUSITIS.) Course - Treatment Treatment: SEE ORDERS. - Education/Counseling Education/Counseling: Patient, Education Educated On: Diagnosis, Needs for Follow Up ROR - Labs Reviewed Laboratory Results Reviewed?: Yes Laboratory: Influenza Type A (PCR) Negative (NEGATIVE) 11/05/17 10:34 Influenza Type B (PCR) Negative (NEGATIVE) 11/05/17 10:34 - Diagnosis Discharge Problem: Bronchitis - Discharge Plan Disposition: 01 HOME, SELF-CARE Condition: Stable Prescriptions: Amoxicillin [Amoxil 875 mg] 875 mg PO Q12H #20 tab Cetirizine HCl [Zyrtec Tab 10 mg] 10 mg PO DAILY PRN #30 tab PRN Reason: - Follow ups/Referrals Follow ups/Referrals: RIKKI MANTILLA [Primary Care Provider] - 3 days - Instructions Instructions: Acute Bronchitis, [id number] Additional Instructions: RETURN TO ED IF WORSE.
--- NOTE | 2017-11-05 11:33 | RAD ---
HISTORY: Flu-like symptoms Study: PA and lateral views of the chest. Comparison: 03/17/2017 Findings: The cardiomediastinal silhouette is normal. No focal consolidations, pleural effusions or pneumothora x. Osseous structures demonstrate no acute abnormality. IMPRESSION: 1. No acute cardiopulmonary process. Reported By:
== END 2017-11-05 11:58 | disposition home or self-care (01) ==
LOC: ER 10:18
DX: J40 Bronchitis, not specified as acute or chronic (principal)
CPT/HCPCS: 71046; 87502; 99282

== ENCOUNTER 2017-11-15 15:45 | Emergency (ER) | payer OTHER, BC ==
[2017-11-15 15:50] VITALS: BMI 22.7
[2017-11-15] MEDS ORDERED: STERILE WATER IRRIGATION IR ONE (17:23)
[2017-11-15 18:41] LABS: BASOPHILS # (AUTO) 0.1 X10^3/uL (0.0-0.1); BASOPHILS % (AUTO) 0.6 % (0.2-1.0); EOSINOPHILS # (AUTO) 0.2 x10^3/uL (0.0-0.2); EOSINOPHILS % (AUTO) 1.7 % (0.9-2.9); HEMATOCRIT 37.2 % (42.0-54.0); HEMOGLOBIN 12.4 g/dL (13.5-18.0); LYMPHOCYTES # (AUTO) 0.9 X10^3/uL (1.3-2.9); LYMPHOCYTES % (AUTO) 9.1 % (21.0-51.0); MEAN CORPUSCULAR HEMOGLOBIN 31.9 pg (27.0-34.0); MEAN CORPUSCULAR HGB CONC 33.5 g/dL (33.0-35.0); MEAN CORPUSCULAR VOLUME 95.1 fL (80.0-100.0); MEAN PLATELET VOLUME 8.7 fL (7.4-11.0); MONOCYTES # (AUTO) 0.8 x10^3/uL (0.3-0.8); MONOCYTES % (AUTO) 8.5 % (0.0-13.0); NEUTROPHILS # (AUTO) 7.8 x10^3/uL (2.2-4.8); NEUTROPHILS % (AUTO) 80.1 % (42.0-75.0); PLATELET COUNT 104 X10^3/uL (150.0-450.0); RED BLOOD COUNT 3.91 X10^6/uL (4.7-6.0); RED CELL DISTRIBUTION WIDTH 15.2 % (11.6-16.5); WHITE BLOOD COUNT 9.7 X10^3/uL (3.6-10.0)
[2017-11-15 18:50] LABS: ALANINE AMINOTRANSFERASE 11 Units/L (12-78); ALKALINE PHOSPHATASE 70 Units/L (46-116); ASPARTATE AMINO TRANSFERASE 22 Units/L (15-37); BLOOD UREA NITROGEN 30 mg/dL (7-18); CALCIUM 8.7 mg/dL (8.5-10.1); CARBON DIOXIDE 28.2 mmol/L (21-32); CHLORIDE 96 mmol/L (98-107); COR CA(FOR HYPOALB) 9.5 mg/dL (8.5-10.1); CREATININE 6.02 mg/dL (0.70-1.30); SODIUM 134 mmol/L (136-145); TOTAL PROTEIN 6.9 g/dL (6.4-8.2); eGFR BLACK RACES 12 (>60); eGFR NON BLACK RACES 10 (>60)
--- NOTE | 2017-11-15 19:01 | DR.UPM ---
HPI - Time Seen Time seen: 18:30 - PCP Primary Care Physician: ANNALEE - Complaint Chief Complaint Doctors Comments: Patient presented to the ED with complaint of bloody penile discharge with clots. He reports that home health nurse came out and changed his catheter and has been bleeding every since. Chief Complaint:: PT. STATES HIS URINARY CATHETER WAS CHANGED TODAY PER VISITING NURSE'S AND HE IS PASSING BRIGHT RED BLOOD. BRIGHT RED BLOOD NOTED IN TUBING AND IN CATHETER BAG. PT. DENIES PAIN. - Source History Provided: Patient - Mode of Arrival Mode of Arrival: Wheelchair - Timing Onset of Chief Complaint: 11/15/17 PMH - PMH Past Medical History: Yes Past Medical History: Coronary Artery Disease, [place], Renal Disease, SVT Past Surgical History: Yes Surgical History: Angioplasty/Stents, Ortho Surgery, Other Past Surgical History Comment: DIALYSIS SHUNT TO RIGHT UPPER ARM - Family History History of Family Medical Conditions: Yes Family Medical History: [place], Coronary Artery Disease - Social History Does patient currently use any type of tobacco product: No Have you used tobacco products in the last 12 months: No Type of Tobacco Use: None Does any household member use tobacco: No Alcohol Use: None Do you use any recreational Drugs:: No Lives With: Spouse Lives Where: Home - infectious screening In the last 2 months have you had wt loss of >10#?: NO Have you had fever, night sweats or hemotysis?: No Have you traveled outside the country in the last 6 months?: No Isolation: Standard ROS - Review of Systems Eyes: No Symptoms Reported ENTM: No Symptoms Reported Respiratoy: No Symptoms Reported Cardiovascular: No Symptoms Reported Gastrointestinal/Abdominal: No Symptoms Reported Genitourinary: No Symptoms Reported Neurological: No Symptoms Reported Musculoskeletal: No Symptoms Reported Integumentary: No Symptoms Reported Hematologic/Lymphatic: No Symptoms Reported Endocrine: No Symptoms Reported Psychiatric: No Symptoms Reported All Other Systems: Reviewed and Negative PE - Vital Signs Vitals: Temperature 97.6 F Pulse Rate 68 Respiratory Rate 18 Blood Pressure [Left Arm] 118/82 Blood Pressure [Right Arm] 115/72 Blood Pressure 136/63 O2 Sat by Pulse Oximetry 99 Course - Reevaluation 1st: Unchanged - Consultation Called: 21:00 (Dr Willams advised to have patient to follow up in the AM at 0900) ROR - Labs Reviewed Result Diagrams: 11/15/17 18:25 11/15/17 18:25 Laboratory: WBC 9.7 X10^3/uL (3.6-10.0) 11/15/17 18: RBC 3.91 X10^6/uL (4.7-6.0) L 11/15/17: Hgb 12.4 g/dL (13.5-18.0) L 11/15/17: Hct 37.2 % (42.0-54.0) L 11/15/17: MCV 95.1 fL (80.0-100.0) 11/15/17: MCH 31.9 pg (27.0-34.0) 11/15/17: MCHC 33.5 g/dL (33.0-35.0) 11/15/17: RDW 15.2 % (11.6-16.5) 11/15/17 Plt Count 104 X10^3/uL (150.0-450.0) L 11/15/17: MPV 8.7 fL (7.4-11.0) 11/15/17: Neut % 80.1 % (42.0-75.0) H 11/15/17: Lymph % 9.1 % (21.0-51.0) L 11/15/17: [place] % 8.5 % (0.0-13.0) 11/15/17: Eos % 1.7 % (0.9-2.9) 11/15/17: Baso % 0.6 % (0.2-1.0) 11/15/17: Neut # 7.8 x10^3/uL (2.2-4.8) H 11/15/17: Lymph # 0.9 X10^3/uL (1.3-2.9) L 11/15/17: [place] # 0.8 x10^3/uL (0.3-0.8) 11/15/17: Eos # 0.2 x10^3/uL (0.0-0.2) 11/15/17: Baso # 0.1 X10^3/uL (0.0-0.1) 02/08/18 18:25 Absolute Nucleated RBC 0.0 /100WBC 11/15/17 18:25 Sodium 134 mmol/L (136-145) L 11/15/17 18:25 Corrected Sodium TNP 11/15/17 18:25 Potassium 4.8 mmol/L (3.5-5.1) 11/15/17 18:25 Chloride 96 mmol/L (98-107) L 11/15/17 18:25 Carbon Dioxide 28.2 mmol/L (21-32) 11/15/17 18:25 BUN 30 mg/dL (7-18) H 11/15/17 18:25 Creatinine 6.02 mg/dL (0.70-1.30) H 11/15/17 18:25 Est GFR (MDRD) Af Amer 12 (>60) L 11/15/17 18:25 Est GFR (MDRD) Non-Af 10 (>60) L 11/15/17 18:25 Glucose 96 mg/dL (65-99) 11/15/17 18:25 Calcium 8.7 mg/dL (8.5-10.1) 11/15/17 18:25 Corrected Calcium 9.5 mg/dL (8.5-10.1) 11/15/17 18:25 Total Bilirubin 0.40 mg/dL (0.2-1.0) 11/15/17 18:25 AST 22 Units/L (15-37) 11/15/17 18:25 ALT 11 Units/L (12-78) L 11/15/17 18:25 Alkaline Phosphatase 70 Units/L (46-116) 11/15/17 18:25 Total Protein 6.9 g/dL (6.4-8.2) 11/15/17 18:25 Albumin 3.0 g/dL (3.4-5.0) L 11/15/17 18:25 Globulin 3.9 g/dL (2.5-4.5) 11/15/17 18:25 Albumin/Globulin Ratio 0.8 Ratio (1.1-2.1) L 11/15/17 18:25 - Diagnosis Discharge Problem: Hemorrhage of corpus cavernosum or penis - Discharge Plan Condition: Stable - Follow ups/Referrals Follow ups/Referrals: RIKKI MANTILLA [Primary Care Provider] - 3 days - Instructions
--- NOTE | 2017-11-15 19:15 | CT ---
CT of the abdomen and pelvis without contrast. Indication: Hematuria. Comparison: None Findings: Images of the lower lungs demonstrate tree-in-bud nodules with more rounded nodules through out both lower lung smith. 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 The abdominal a king shows significant atherosclerotic disease without aneurysmal dilatation. There is soft tissue de nsity within the mid abdomen subcutaneous fat. Abdomen: For noncontrast study the liver is unremarkable except for calcified granuloma. There are ga llbladder stones without CT evidence of gallbladder inflammation. The spleen is unremarkable. The adr enal glands and pancreas are unremarkable. Both kidneys are trophic. There is no hydronephrosis. The ureters are unremarkable. Pelvis: There is circumferential thickening of the urinary bladder with left lateral bladder divertic ulum. Prior clips from hernia repair are seen. The small bowel shows no abnormality. There are severa l colonic diverticula without adjacent inflammation. Conclusion: 1. Circumferential urinary bladder wall thickening with diverticulum. Correlation for cystitis is rec ommended. 2. Nodules with tree-in-bud opacification of the visualized lower lung zones. Findings are nonspecifi c and could represent infectious versus neoplastic process. Short follow-up CT of the chest is recomm ended to document resolution. 3. Cholelithiasis without CT evidence of cholecystitis. 4. Anterior subcutaneous wall soft tissue lesion is nonspecific and may represent sequelae from prior surgery. Ultrasound could be performed for further evaluation and the need for biopsy. Reported By:
[2017-11-15 20:37] VITALS: BP 154/86
== END 2017-11-15 20:34 | disposition home or self-care (01) ==
LOC: ER 15:56
DX: N48.89 Other specified disorders of penis (principal)
CPT/HCPCS: 36415; 74176; 80053; 85025; 96365; 99282; 99283; A4217; A4222

== ENCOUNTER 2018-01-24 08:02 | Day surgery (SDC) | payer OTHER, BC ==
[2018-01-24] MEDS ORDERED: D5 LR 1000 ML 0 ML IV ONE (08:13)
[2018-01-24] MEDS ORDERED: NS 500 ML IV 500 ML IV ONE (08:25)
[2018-01-24] MEDS ORDERED: DIPRIVAN VIAL 20 ML ONE (10:44)
[2018-01-24 11:21] VITALS: BP 110/60
== END 2018-01-24 11:23 | disposition home or self-care (01) ==
LOC: SURG1 08:02
PROVIDERS: ATTEND Internal Medicine Gastroenterology
PROC: 0DB68ZX Excision of Stomach, Via Natural or Artificial Opening Endoscopic, Diagnostic (ICD-10-PCS; principal; 2018-01-24 09:30)
PROC: 0DJ08ZZ Inspection of Upper Intestinal Tract, Via Natural or Artificial Opening Endoscopic (ICD-10-PCS; principal; 2018-01-24 09:30)
DX: K25.9 Gastric ulcer, unspecified as acute or chronic, without hemorrhage or perforation (principal); K21.9 Gastro-esophageal reflux disease without esophagitis; K29.60 Other gastritis without bleeding; K20.8 Other esophagitis
CPT/HCPCS: 99100; A4217; J3490; J7120

== ENCOUNTER 2018-01-29 08:36 | Day surgery (SDC) | payer BC, OTHER ==
[2018-01-29] MEDS ORDERED: NS 500 ML IV 500 ML IV ONE (08:59)
[2018-01-29] MEDS ORDERED: TETRACAINE 0.5% OPHTH 1 DOSE AFFEYE ONE ×4 (09:15→12:45)
[2018-01-29] MEDS ORDERED: VIGAMOX 0.5% OPHTH 1 DOSE AFFEYE ONE ×5 (09:20→12:57)
[2018-01-29] MEDS ORDERED: PROLENSA OPHTH 1 DOSE AFFEYE ONE (09:31)
[2018-01-29] MEDS ORDERED: ALPHAGAN-P OPHTH 1 DOSE AFFEYE ONE (09:32)
[2018-01-29] MEDS ORDERED: AK-DILATE 2.5% OPHTH 1 DOSE OP ONE ×3 (09:33→09:35)
[2018-01-29] MEDS ORDERED: MYDRIACIL OPHTH 1 DOSE AFFEYE ONE ×3 (09:33→09:35)
[2018-01-29] MEDS ORDERED: CYCLOGYL 1% OPHTH 1 DOSE OP ONE ×3 (09:33→09:35)
[2018-01-29] MEDS ORDERED: DIPRIVAN VIAL ONE (10:46)
[2018-01-29] MEDS ORDERED: BETADINE OPHTH SOLN 5% EACHEYE ONE (12:35)
[2018-01-29] MEDS ORDERED: XYLOCAINE-MPF 1% IJ ONE ×2 (12:43→12:45)
[2018-01-29] MEDS ORDERED: ADRENALINE CHL INJ IJ ONE ×2 (12:43→12:45)
[2018-01-29] MEDS ORDERED: BSS OPHTH (PLAIN) 500 ML with VANCOMYCIN HCL 500 MG VIAL 25 MG, ADRENALINE CHL INJ 1 MG IR ONE ×6 (12:44)
[2018-01-29] MEDS ORDERED: DUOVISC IO ONE ×2 (12:44→12:45)
[2018-01-29 13:14] VITALS: BP 106/52
== END 2018-01-29 13:18 | disposition home or self-care (01) ==
LOC: SURG1 08:36
PROVIDERS: ATTEND Ophthalmology
PROC: 08DK3ZZ Extraction of Left Lens, Percutaneous Approach (ICD-10-PCS; principal; 2018-01-29 15:00)
PROC: 08RK3JZ Replacement of Left Lens with Synthetic Substitute, Percutaneous Approach (ICD-10-PCS; principal; 2018-01-29 15:00)
DX: H25.12 Age-related nuclear cataract, left eye (principal); H25.012 Cortical age-related cataract, left eye
CPT/HCPCS: 99100; A4217; J0170; J3370; J3490

== ENCOUNTER 2018-02-12 06:36 | Day surgery (SDC) | payer OTHER ==
[2018-02-12] MEDS ORDERED: TETRACAINE 0.5% OPHTH 1 DOSE AFFEYE ONE ×2 (07:15→09:23)
[2018-02-12] MEDS ORDERED: VIGAMOX 0.5% OPHTH 1 DOSE AFFEYE ONE ×5 (07:16→09:53)
[2018-02-12] MEDS ORDERED: PROLENSA OPHTH 1 DOSE AFFEYE ONE (07:24)
[2018-02-12] MEDS ORDERED: ALPHAGAN-P OPHTH 1 DOSE AFFEYE ONE (07:25)
[2018-02-12] MEDS ORDERED: AK-DILATE 2.5% OPHTH 1 DOSE OP ONE ×3 (07:26→07:28)
[2018-02-12] MEDS ORDERED: CYCLOGYL 1% OPHTH 1 DOSE OP ONE ×3 (07:26→07:28)
[2018-02-12] MEDS ORDERED: MYDRIACIL OPHTH 1 DOSE AFFEYE ONE ×3 (07:26→07:28)
[2018-02-12] MEDS ORDERED: NS 500 ML IV 500 ML IV ONE (07:44)
[2018-02-12] MEDS ORDERED: BETADINE OPHTH SOLN 5% EACHEYE ONE (09:23)
[2018-02-12] MEDS ORDERED: DUOVISC IO ONE ×2 (09:30→09:39)
[2018-02-12] MEDS ORDERED: XYLOCAINE-MPF 1% IJ ONE ×2 (09:30→09:39)
[2018-02-12] MEDS ORDERED: ADRENALINE CHL INJ IJ ONE ×2 (09:30→09:39)
[2018-02-12] MEDS ORDERED: BSS OPHTH (PLAIN) 500 ML with VANCOMYCIN HCL 500 MG VIAL 25 MG, ADRENALINE CHL INJ 1 MG IR ONE ×6 (09:31)
[2018-02-12 10:26] VITALS: BP 119/60
[2018-02-12] MEDS ORDERED: DIPRIVAN VIAL ONE (15:49)
== END 2018-02-12 10:15 | disposition home or self-care (01) ==
LOC: SURG1 06:36
PROVIDERS: ATTEND Ophthalmology
PROC: 08RJ3JZ Replacement of Right Lens with Synthetic Substitute, Percutaneous Approach (ICD-10-PCS; principal; 2018-02-12 09:45)
PROC: 08DJ3ZZ Extraction of Right Lens, Percutaneous Approach (ICD-10-PCS; principal; 2018-02-12 09:45)
DX: H25.11 Age-related nuclear cataract, right eye (principal); H25.011 Cortical age-related cataract, right eye
CPT/HCPCS: A4217; J0170; J3370; J3490